=== PATIENT | female | born 1980 | race American Indian/Alaskan Native ===

== ENCOUNTER 2019-01-30 09:37 | Emergency (ER) | payer MEDICAID, OTHER ==
[2019-01-30 09:44] VITALS: BP 128/61
[2019-01-30] MEDS ORDERED: TORADOL IM ONE (10:30)
--- NOTE | 2019-01-30 10:33 | Emergency Department Report ---
ED Back Pain/Injury HPI - General Chief Complaint: Back Pain/Injury Stated Complaint: FALL INJURY/BUTTOCK/BACK PAIN Time Seen by Provider: 01/30/19 10:28 Source: patient Limitations: No Limitations - History of Present Illness Complaint: back pain, back injury, fall -: days(s) (5) Place: home Radiation: none Severity: moderate Quality: sharp, dull Consistency: constant Improves With: immobilization Worsens With: movement Associated Symptoms: denies other symptoms - Related Data Home Medications Medication Instructions Recorded Confirmed Last Taken Ibuprofen [Motrin] 800 mg PO Q8HR PRN 10/23/15 10/23/15 10/23/15 06:30 metroNIDAZOLE [Flagyl] 500 mg PO Q12HR 10/23/15 10/23/15 10/23/15 06:30 Previous Rx's Medication Instructions Recorded Last Taken Type traMADol [Ultram 50 MG tab] 50 mg PO Q6HR PRN #10 tablet 10/23/15 Unknown Rx Allergies Allergy/AdvReac Type Severity Reaction Status Date / Time No Known Allergies Allergy Verified 10/23/15 07:55 ED Review of Systems ROS: Stated complaint: FALL INJURY/BUTTOCK/BACK PAIN Other details as noted in HPI Comment: All other systems reviewed and negative Constitutional: denies: chills, fever Respiratory: denies: cough, shortness of breath, SOB with exertion Cardiovascular: denies: chest pain Gastrointestinal: denies: abdominal pain, nausea Musculoskeletal: back pain. denies: joint swelling Neurological: denies: headache, weakness, numbness, paresthesias, confusion, abnormal gait ED Past Medical Hx - Past Medical History Previous Medical History?: No - Surgical History Past Surgical History?: Yes Additional Surgical History: tubal ligation - Social History Smoking Status: Current Every Day Smoker Substance Use Type: None - Medications Home Medications: Home Medications Medication Instructions Recorded Confirmed Last Taken Type Ibuprofen [Motrin] 800 mg PO Q8HR PRN 10/23/15 10/23/15 10/23/15 06:30 History metroNIDAZOLE [Flagyl] 500 mg PO Q12HR 10/23/15 10/23/15 10/23/15 06:30 History traMADol [Ultram 50 MG tab] 50 mg PO Q6HR PRN #10 tablet 10/23/15 Unknown Rx ED Physical Exam - General Limitations: No Limitations General appearance: alert, in no apparent distress - Head Head exam: Present: atraumatic, normocephalic, normal inspection - Eye Eye exam: Present: normal appearance, PERRL - ENT ENT exam: Present: normal exam, normal orophraynx, mucous membranes moist - Neck Neck exam: Present: normal inspection, full ROM. Absent: tenderness, meningismus, lymphadenopathy, thyromegaly - Respiratory Respiratory exam: Present: normal lung sounds bilaterally - Cardiovascular Cardiovascular Exam: Present: regular rate, normal rhythm, normal heart sounds - GI/Abdominal GI/Abdominal exam: Present: soft, normal bowel sounds. Absent: distended, tenderness, rebound, rigid, organomegaly, mass, bruit, pulsatile mass, hernia - Extremities Exam Extremities exam: Present: normal inspection, full ROM, normal capillary refill - Back Exam Back exam: Present: normal inspection, full ROM, muscle spasm. Absent: tenderness, CVA tenderness (R), CVA tenderness (L), paraspinal tenderness, vertebral tenderness, rash noted - Neurological Exam Neurological exam: Present: alert, oriented X3, CN II-XII intact, normal gait, reflexes normal - Skin Skin exam: Present: warm, intact, normal color ED Course Vital Signs 01/30/19 09:43 Temperature 97.9 F Pulse Rate 66 Respiratory 20 Rate Blood Pressure 128/61 O2 Sat by Pulse 99 Oximetry ED Medical Decision Making - Radiology Data Radiology results: report reviewed Lumbosacral x-ray is negative for acute finding. Critical care attestation.: If time is entered above; I have spent that time in minutes in the direct care of this critically ill patient, excluding procedure time. ED Disposition Clinical Impression: Acute back pain Disposition: - TO HOME OR SELFCARE Is pt being admited?: No Condition: Stable Instructions: Acute Low Back Pain (ED) Referrals: KIMBERLEE HAMPTON MD [Primary Care Provider] - 3-5 Days Forms: Work/School Release Form(ED)
--- NOTE | 2019-01-30 10:57 | XRay Report ---
LUMBOSACRAL SPINE, 3 VIEWS: History: Back injury, pain. Findings: The vertebral bodies, disk spaces and posterior elements are intact. No compression deformity or malalignment. The SI joints are symmetric and unremarkable. Impression: Lumbar spine within normal limits.
== END 2019-01-30 11:35 | disposition home or self-care (01) ==
LOC: ED 09:37
DX: M54.9 Dorsalgia, unspecified (principal); F17.200 Nicotine dependence, unspecified, uncomplicated; Z98.51 Tubal ligation status
CPT/HCPCS: 72100; 96372; 99283; J1885

== ENCOUNTER 2022-06-04 18:24 | Emergency (ER) | payer MEDICAID ==
[2022-06-05] MEDS ORDERED: LIDOCAINE (2%) 20 MG/1 ML VIAL 20 ML MDV INFILTRATI STA (00:27)
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
[2022-06-05 05:07] VITALS: BP 113/81
== END 2022-06-05 05:07 | disposition home or self-care (01) ==
LOC: ED 18:24
DX: S01.511A Laceration without foreign body of lip, initial encounter (principal); F17.200 Nicotine dependence, unspecified, uncomplicated; Y93.89 Activity, other specified; Y92.89 Other specified places as the place of occurrence of the external cause; Y99.8 Other external cause status
CPT/HCPCS: 12013; 99283; J3490